=== PATIENT | female | born 1960 | race African-American/Black ===

== ENCOUNTER 2022-02-14 08:33 | Emergency (ER) | payer OTHER ==
[2022-02-14 08:48] VITALS: BP 149/78; PULSE 71; TEMP 99.1; BMI 23.8
[2022-02-14] MEDS ORDERED: ONDANSETRON 4 MG/2 ML VIAL IVPUSH ONE (10:18)
[2022-02-14] MEDS ORDERED: morphine CARPU-JECT 4 MG/1 ML DISP.SYRIN IVPUSH ONE (10:18)
[2022-02-14] MEDS ORDERED: SODIUM CHLORIDE 1,000 ML IV STA (10:18)
[2022-02-14] MEDS ORDERED: ONDANSETRON 4 MG/2 ML VIAL ONE (10:26)
[2022-02-14 10:58] LABS: BASO % 0.7 % (0-2.0); EOS % 0.9 % (0-4.5); HEMATOCRIT 42.9 % (32.4-45.2); HEMOGLOBIN 13.9 GM/dL (10.7-15.3); LYMPH % 28.9 % (8-40); MCH 29.5 pg (25.7-33.7); MCHC 32.5 g/dl (32.0-36.0); MEAN CELL VOLUME 90.9 fl (80-96); MEAN PLT VOLUME 10.2 fl (7.5-11.1); MONO % 7.6 % (3.8-10.2); NEUT % 61.9 % (42.8-82.8); PLATELET COUNT 189 10^3/uL (134-434); RBC 4.72 M/mm3 (3.60-5.2); WHITE BLOOD COUNT 11.3 K/mm3 (4.0-10.0)
[2022-02-14 11:25] LABS: ALBUMIN 3.3 g/dl (3.4-5.0); BLOOD UREA NITROGEN 14.7 mg/dL (7-18); CALCIUM 9.6 mg/dL (8.5-10.1)
[2022-02-14 11:29] LABS: BILIRUBIN,TOTAL 0.4 mg/dL (0.2-1); CREATININE 1.1 mg/dL (0.55-1.3); TOT PROT 6.9 g/dl (6.4-8.2)
== END 2022-02-14 14:54 | disposition home or self-care (01) ==
LOC: JER 08:33
PROC: 3E033NZ Introduction of Analgesics, Hypnotics, Sedatives into Peripheral Vein, Percutaneous Approach (ICD-10-PCS; principal; 2022-02-14)
PROC: 3E033GC Introduction of Other Therapeutic Substance into Peripheral Vein, Percutaneous Approach (ICD-10-PCS; 2022-02-14)
PROC: 3E0337Z Introduction of Electrolytic and Water Balance Substance into Peripheral Vein, Percutaneous Approach (ICD-10-PCS; 2022-02-14)
DX: L03.211 Cellulitis of face (principal)
CPT/HCPCS: 36415; 70487-TC; 80053; 85025; 99285-25

== ENCOUNTER 2022-02-17 11:12 | Emergency (ER) | payer OTHER ==
[2022-02-17 11:29] VITALS: BP 160/90; PULSE 68; TEMP 98.2; BMI 39.1
[2022-02-17] MEDS ORDERED: KETOROLAC TROMETHAMINE 30 MG/1 ML VIAL IM ONE (13:03)
[2022-02-17] MEDS ORDERED: KETOROLAC TROMETHAMINE 30 MG/1 ML VIAL ONE (13:24)
[2022-02-17 14:21] LABS: BASO % 0.8 % (0-2.0); EOS % 2.6 % (0-4.5); HEMATOCRIT 41.4 % (32.4-45.2); HEMOGLOBIN 14.1 GM/dL (10.7-15.3); MCH 30.6 pg (25.7-33.7); MCHC 34.1 g/dl (32.0-36.0); MEAN CELL VOLUME 89.8 fl (80-96); MEAN PLT VOLUME 10.7 fl (7.5-11.1); MONO % 9.1 % (3.8-10.2); NEUT % 61.5 % (42.8-82.8); PLATELET COUNT 203 10^3/uL (134-434); RBC 4.61 M/mm3 (3.60-5.2); RDW 14.3 % (11.6-15.6); WHITE BLOOD COUNT 8.1 K/mm3 (4.0-10.0)
[2022-02-17 14:38] LABS: CHLORIDE 100 mmol/L (98-107); SODIUM 136 mmol/L (136-145)
[2022-02-17 14:40] LABS: CALCIUM 9.9 mg/dL (8.5-10.1)
[2022-02-17 14:41] LABS: ANION GAP 9 MMOL/L (8-16); BLOOD UREA NITROGEN 11.3 mg/dL (7-18); CO2 27 mmol/L (21-32)
[2022-02-17 14:44] LABS: SGOT/AST 15 U/L (15-37); SGPT/ALT 11 U/L (13-61)
[2022-02-17 14:45] LABS: BILIRUBIN,TOTAL 0.5 mg/dL (0.2-1); TOT PROT 7.2 g/dl (6.4-8.2)
[2022-02-17 14:47] LABS: ALK PHOS 121 U/L (45-117); GLUCOSE,RANDOM 409 mg/dL (74-106)
[2022-02-17] MEDS ORDERED: VANCOMYCIN 1 GM in D5W (PRE-DOCKED) 1,000 MG/250 ML IVPB ONE (15:25)
[2022-02-17] MEDS ORDERED: SODIUM CHLORIDE 0.9% 500 ML INFUS.BAG IV ONE (15:25)
[2022-02-17] MEDS ORDERED: VANCOMYCIN 1 GRAM (PRE-DOCKED) 1,000 MG/250 ML BAG IVPB ONE (15:33)
[2022-02-17] MEDS ORDERED: DALBAVANCIN HCL 1,500 MG in DEXTROSE 5%-WATER - 500 ML IVPB ONE (15:36)
[2022-02-17] MEDS ORDERED: DALBAVANCIN HCL 500 MG VIAL (RESTRICTED TO ID ONLY) IVPB ONE (15:38)
== END 2022-02-17 18:05 | disposition home or self-care (01) ==
LOC: JERFT 11:12 → JER 11:12 → JERFT 18:05
PROC: 3E033GC Introduction of Other Therapeutic Substance into Peripheral Vein, Percutaneous Approach (ICD-10-PCS; principal; 2022-02-17)
PROC: 3E023GC Introduction of Other Therapeutic Substance into Muscle, Percutaneous Approach (ICD-10-PCS; principal; 2022-02-17)
DX: E08.628 Diabetes mellitus due to underlying condition with other skin complications (principal); L03.818 Cellulitis of other sites
CPT/HCPCS: 36415; 80053; 82962; 85025; 87040; 99284-25; J0875